=== PATIENT | male | born 2000 | race Caucasian/White ===

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

== ENCOUNTER 2023-03-01 15:19 | Emergency (ER) | payer OTHER ==
[~2023-03-01] VITALS: Ht 180.3 cm; Wt 115.2 kg
[~2023-03-01 15:19] MED LIST changes: +HYDR-3972 PO
[2023-03-01] MEDS ORDERED: ONDANSETRON 4 MG/2 ML VIAL IV ONE (15:45)
[2023-03-01] MEDS ORDERED: IV NORMAL SALINE 1000 ML BAG IV ONE (15:45)
[2023-03-01 15:57] LABS: EOSINOPHILS # (AUTO) 1.6 K/uL (0.0-0.7); HEMATOCRIT 43.4 % (36.7-47.1); HEMOGLOBIN 14.6 g/dL (12.5-16.3); LYMPHOCYTES # (AUTO) 0.7 K/uL (0.8-4.8); LYMPHOCYTES % (AUTO) 4.2 % (20.5-51.5); MEAN CORPUSCULAR HEMOGLOBIN 28.5 uug (23.8-33.4); MEAN CORPUSCULAR HGB CONC 34 g/dL (32.5-36.3); MEAN CORPUSCULAR VOLUME 84.8 fL (73.0-96.2); MONOCYTES # (AUTO) 0.4 K/uL (0.1-1.30); MONOCYTES % (AUTO) 2.8 % (0.0-11.0); NEUTROPHILS # (AUTO) 12.9 K/uL (1.8-8.9); PLATELET COUNT (AUTO) 338 K/uL (152-348); RED BLOOD CELL COUNT(AUTO) 5.12 MIL/uL (4.06-5.63); RED CELL DISTRIBUTION WIDTH 13.9 % (12.1-16.2); WHITE BLOOD COUNT (AUTO) 15.6 K/uL (3.6-10.2)
[2023-03-01] MEDS ORDERED: ONDANSETRON 4 MG/2 ML VIAL ONE (15:58)
[2023-03-01 16:09] LABS: ALANINE AMINOTRANSFERASE 25 U/L (16-63); ALBUMIN 3.7 g/dL (3.4-5.0); ALKALINE PHOSPHATASE 123 U/L (50-136); ASPARTATE AMINOTRANSFERASE 18 U/L (15-37); BILIRUBIN,DIRECT 0.3 mg/dL (0.0-0.2); BILIRUBIN,TOTAL 1.3 mg/dL (0.2-1.0); CALCIUM 8.9 mg/dL (8.5-10.1); CARBON DIOXIDE 25 mmol/L (21-32); CHLORIDE 100 mmol/L (98-107); CREATININE 0.4 mg/dL (0.6-1.3); GLUCOSE 105 mg/dL (74-106); LIPASE 15 U/L (16-77); POTASSIUM 3.5 mmol/L (3.5-5.1); SODIUM SERUM 135 mmol/L (136-145); TOTAL PROTEIN, SERUM 7.7 g/dL (6.4-8.2); UREA NITROGEN, BLOOD 10 mg/dL (7-18)
[2023-03-01 16:12] LABS: DIFFERENTIAL COMMENT 1
[2023-03-01] MEDS ORDERED: CIPROFLOXACIN HCL 250 MG TABLET PO ONE (16:45)
[2023-03-01] MEDS ORDERED: IV NORMAL SALINE 500 ML BAG IV ONE (17:00)
[2023-03-01] MEDS ORDERED: ACETAMINOPHEN ES 500 MG TABLET PO ONE (17:00)
[2023-03-01] MEDS ORDERED: ACETAMINOPHEN ES 500 MG TABLET ONE (17:03)
[2023-03-01] MEDS ORDERED: CIPROFLOXACIN HCL 250 MG TABLET ONE (17:03)
[2023-03-01] MEDS ORDERED: CIPR500T5 PO (17:51)
[2023-03-01 19:01] VITALS: BP 137/67; O2SAT 97
== END 2023-03-01 19:09 | disposition home or self-care (01) ==
LOC: ER 15:21
DX: K52.9 Noninfective gastroenteritis and colitis, unspecified (principal); E86.0 Dehydration; J45.909 Unspecified asthma, uncomplicated; Z79.899 Other long term (current) drug therapy; Z88.0 Allergy status to penicillin
CPT/HCPCS: 99283; 96374; 96361; 80076; 80048; 83690; 85025; 36415; J2405; J7040 ×2; A4606; A4663; A9150